=== PATIENT | male | born 1985 | race Caucasian/White ===

== ENCOUNTER 2017-05-17 20:03 | Inpatient (IN) | payer OTHER ==
[~2017-05-17] VITALS: Ht 185.4 cm; Wt 72.6 kg
--- NOTE | 2017-05-17 20:35 | NUR ---
Intake Note Assessment done inside the intake office. Px is A&Ox4. Px is ambulatory with steady gait. Pxs speech is clear and audible. Px appears anxious and depressed. Px is disheveled and unshaven. Px is cooperative. VS as follows BP= 125/61, LA= 118, RR=18, T= 97.3, O2sat= 95%. Px is here for a recent relapse in using heroin. Px stated no hx of seizures and denies any allergies to drugs and food. Px has brought medicine for reconciliation. Admission process will be continued in the unit.
[2017-05-17 21:30] VITALS: BP 118/63
--- NOTE | 2017-05-17 21:30 | NUR ---
Admission Note Admitted a 31 y/o male px on 05/17/2017 for medically supervised withdrawals from opiate. Px arrived in the unit at 2051. Body searched done and skin check performed. No contraband found and skin is intact. Rita's height is 6'1" and weighs 160 lbs. in standing scale. Rita is oriented in the unit and his room. Px follows a regular diet at home. Px wishes to be in full code. No SOB noted. Respirations are even and unlabored. Abdomen is soft and not distended. Bowel sounds active in all 4 abdominal quadrants. Last BM was 2 days ago as stated. VS as follows BP= 118/63, MD= 108, RR= 16, T= 97.3, O2sat= 97% in RA. Px reported PMHx of anxiety and depression. Px denies any suicidal ideation and seizure hx. Px was able to provide urine for UDS. Substance Abuse Hx: 1. Heroin- 1 G smoked daily for 1 week, last intake was few hours prior admission of 0.2 G smoked. 2. Cocaine- intermittent use, last intake was 1 week ago 3. Methamphetamine- intermittent use, last intake was 1 week ago Px stated that this will be his 2nd detox/tx. Px denies hospitalization for the past mo. Px's longest sobriety was 3 mos in 2017. Px smokes 1 pack of cigarettes daily. Px refused flu and pneumonia vaccines. Px is in fall precaution. Rita has no complaints at the moment. Bed on lowest position, side rails up 2x and call light within reach.
[2017-05-17] MEDS ORDERED: MIRALAX 17 GM POWD.PACK PO PRN (22:30)
[2017-05-17] MEDS ORDERED: BUPRENORPHINE HCL 2 MG TAB.SUBL SL PRN (22:30)
[2017-05-17] MEDS ORDERED: diphenhydrAMINE 50 MG CAPSULE PO PRN (22:30)
[2017-05-17] MEDS ORDERED: ONDANSETRON ODT 4 MG TAB.RAPDIS SL PRN (22:30)
[2017-05-17] MEDS ORDERED: LOPERAMIDE HCL 2 MG CAPSULE PO PRN ×2 (22:30)
[2017-05-17] MEDS ORDERED: DICYCLOMINE HCL 20 MG TABLET PO PRN (22:30)
[2017-05-17] MEDS ORDERED: MAG HYDROX/AL HYDROX/SIMETH 30 ML LIQUID UDC PO PRN (22:30)
[2017-05-17] MEDS ORDERED: ONDANSETRON 4 MG/2 ML VIAL IM PRN (22:30)
[2017-05-17] MEDS ORDERED: CLONIDINE HCL 0.1 MG TABLET PO PRN (22:30)
[2017-05-17] MEDS ORDERED: ACETAMINOPHEN 325 MG TABLET PO PRN (22:30)
[2017-05-17] MEDS ORDERED: MAGNESIUM HYDROXIDE 30 ML LIQUID UDC PO PRN (22:30)
[2017-05-17 23:22] LABS: BASOPHILS % (AUTO) 0.2 % (0.0-2.0); EOSINOPHILS # (AUTO) 0.2 K/uL (0.0-0.7); EOSINOPHILS % (AUTO) 1.3 % (0.0-7.0); HEMATOCRIT 39.8 % (36.7-47.1); HEMOGLOBIN 13.5 g/dL (12.5-16.3); LYMPHOCYTES # (AUTO) 1.3 K/uL (20.0-40.0); LYMPHOCYTES % (AUTO) 8.1 % (20.5-51.5); MEAN CORPUSCULAR HEMOGLOBIN 30.2 uug (23.8-33.4); MEAN CORPUSCULAR HGB CONC 34 g/dL (32.5-36.3); MEAN CORPUSCULAR VOLUME 89.1 fL (73.0-96.2); MONOCYTES % (AUTO) 6.3 % (0.0-11.0); NEUTROPHILS # (AUTO) 13.9 K/uL (1.8-8.9); NEUTROPHILS % (AUTO) 84.1 % (38.5-71.5); PLATELET COUNT (AUTO) 318 K/uL (152-348); RED BLOOD CELL COUNT(AUTO) 4.46 MIL/uL (4.06-5.63); WHITE BLOOD COUNT (AUTO) 16.5 K/uL (3.6-10.2)
[2017-05-17 23:27] LABS: CARBON DIOXIDE 31 mmol/L (21-32); CHLORIDE 103 mmol/L (98-107); ETHANOL < 3 MG/DL (0-0); POTASSIUM 3.8 mmol/L (3.5-5.1)
[2017-05-17 23:28] LABS: ALANINE AMINOTRANSFERASE 17 U/L (16-63); ALKALINE PHOSPHATASE 66 U/L (50-136); AMYLASE 23 U/L (25-115); ASPARTATE AMINOTRANSFERASE 13 U/L (15-37); BILIRUBIN,TOTAL 0.4 mg/dL (0.2-1.0); CREATININE 0.9 mg/dL (0.6-1.3); GLUCOSE 122 mg/dL (74-106); LIPASE 71 U/L (73-393); TOTAL PROTEIN, SERUM 6.6 g/dL (6.4-8.2); UREA NITROGEN, BLOOD 17 mg/dL (7-18)
[2017-05-17 23:39] LABS: THYROID STIMULATING HORMONE 0.332 mIU/mL (0.358-3.740)
[2017-05-17 23:49] LABS: *AMPHETAMINE, URINE POSITIVE (NEGATIVE); *BARBITURATE, URINE NEGATIVE (NEGATIVE); *CANNABINOID, URINE NEGATIVE (NEGATIVE); *COCCAINE, URINE POSITIVE (NEGATIVE); *OPIATE, URINE POSITIVE (NEGATIVE); *PHENCYCLIDINE SCREEN,URINE NEGATIVE (NEGATIVE)
[2017-05-18] VITALS: BP 112/61
[2017-05-18] MEDS ORDERED: FLUO15CR2 TP (01:28)
[2017-05-18] MEDS ORDERED: SUMA100T16 PO (01:28)
[2017-05-18 04:00] VITALS: BP 110/63
--- NOTE | 2017-05-18 04:00 | NUR ---
COWS deferred COWS deferred at 0000 and 0400 due to the px is asleep, to assess if the px is awake per doctor's order. We'll continue to monitor.
--- NOTE | 2017-05-18 07:39 | NUR ---
End of Shift Note During the shift, px slept most of the time. Px is not withdrawing yet. Last COWS 4. At 0630, px is asleep on bed in right side lying position. Bed on lowest position, side rails up 2x and call light within reach. We'll continue to monitor. Px endorsed to AM shift nurse.
--- NOTE | 2017-05-18 07:40 | NUR ---
Start of Shift Notes: Received patient in his room. Appears disheveled and unkempt. Clothes on the floor and pillows on the floor. Patient laying in bed with eyes closed. Arousable to touch. Breathing even and unlabored. Appears flushed. Patient is a 31 year old male admitted for opiate withdrawal. Taper to be re-assessed today by MD. Educated patient on his current plano of care for the day and his medication regimen. Encouraged oral fluid intake and encouraged group participation to learn new skills to prevent relapse. Will continue to monitor.
[2017-05-18 08:00] VITALS: BP 117/71
[2017-05-18] MEDS: METHOCARBAMOL 750 MG TABLET PO PRN (08:41)
[2017-05-18] MEDS: MULTIVITAMINS,THERAPEUTIC TABLET PO SCH (08:41)
[2017-05-18] MEDS: IBUPROFEN 600 MG TABLET PO PRN (08:41)
--- NOTE | 2017-05-18 08:41 | NUR ---
Clonidine/Robaxin/Motrin: COWS 6, patient presented with chills, hot flashes, mild sweats, tremors, mild anxiety and 6/10 generalized joint aches. Patient verbalized that he is not ready to take Subutex at this time and will let the nurse know when he is ready. Educated patient on the risk and benefits and to immediately call nurse once he is ready. Per patient, he will let nurse know. PRN Clonidine 0.1mg PO, Motrin 600mg PO and Robaxin 750mg PO given as ordered. Will monitor for effectiveness.
[2017-05-18] MEDS ORDERED: TUBERCULIN,PURIF.PROT.DERIV. 5 TU/0.1 ML TEST ID ONE (09:00)
--- NOTE | 2017-05-18 09:41 | NUR ---
Re-assessment: Clonidine/Motrin and Robaxin Patient verbalizes relief from anxiety, sweats, and restlessness. PL 3/10. PRN Clonidine, Motrin and Robaxin were effective.
--- NOTE | 2017-05-18 11:06 | NUR ---
Communication: Labs WBC 16.5H. Notified Dr. Beebe who is in the unit. Patient is afebrile. Denies any complains of dysyuria. No cough. No congestion noted.
[2017-05-18 12:00] VITALS: BP 115/66
--- NOTE | 2017-05-18 12:00 | NUR ---
COWS Deferred: Patient is seen laying in bed. Eyes closed. Breathing even and unlabored. Easily arousable. RR 15. COWS deferred at this time. Addendum: 05/18/17 at 1216 by DINESH LEHMAN LVN Amended: Links added.
--- NOTE | 2017-05-18 13:32 | NUR ---
Subutex 4 mg SL given: COWS 17, patient presented with runny nose, tearing, muscle aches, bone/joint pain, chills, hot flashes, anxiety and moderate pupil dilation. Medicated patient with Subutex 4 mg SL as ordered. Will monitor for effectiveness.
--- NOTE | 2017-05-18 14:02 | NUR ---
Re-assessment: Subutex 4 mg SL COWS 13, patient noted with decreased tremors, decreased anxiety/agitation, achiness and pupil dilation.
[2017-05-18] MEDS ORDERED: SUMATRIPTAN 25 MG PO PRN (14:15)
[2017-05-18 16:00] VITALS: BP 119/52
[2017-05-18] MEDS: FLUOCINONIDE 0.05% TOP SCH (17:00)
--- NOTE | 2017-05-18 17:59 | NUR ---
1700 Fluocinonide refused: Ointment was offered. Patient refused. Stating "I don't need it right now. Maybe tomorrow." Educated patient on the risk and benefits. Patient states "I'm fine right now."
--- NOTE | 2017-05-18 19:17 | NUR ---
End of Shift Notes: Patient initiated his 3-day Subutex taper as ordered. No adverse reactions noted. No significant abnormalities noted. Withdrawal symptoms were closely monitored. Initial COWS 6, patient presented with anxiety, agitation, restlessness, pupil dilation, myalgia, chills, hot flashes. COWS at 1332 was 17, medicated patient with Subutex 4 mg SL as ordered with help after 30 minutes. Last COWS 10. Per patient, Subutex has been effective in reducing his withdrawal symptoms. Medicated patient with Clonidine, Robaxin and Motrin at 0841 with help after 1 hour. Patient was unable to participate in group and activities due to his withdrawal symptoms. Encouraged oral fluid intake and encouraged group participation to learn new skills to prevent relapse. All needs met and attended. Will continue to monitor.
[2017-05-18 20:00] VITALS: BP 102/69
--- NOTE | 2017-05-18 20:00 | NUR ---
Start of Shift Note Received a 31 y/o male px, admitted on 05/17/2017 for medically supervised withdrawal from opiate. Px is awake on bed on right side lying position reading. Px is disheveled with unshaven face. Unfinished dinner plate and some snack noted on bed side table. Px stated "My anxiety is 5/10". Last reported COWS was 10 by AM shift nurse. Bed on lowest position, side rails up 2x and call light within reach. We'll continue to monitor.
[2017-05-18] MEDS ORDERED: BUPRENORPHINE HCL 2 MG TAB.SUBL SL SCH (21:00)
[2017-05-19] VITALS: BP 109/66
[2017-05-19 04:00] VITALS: BP 101/60
--- NOTE | 2017-05-19 07:17 | NUR ---
End of Shift Note During the shift, px slept most of the time. Px's oral intake is 1 L, voided 2x, BM 1x. Px slept for 11 hours. At 0630, px is asleep on bed. Last COWS 7. Bed on lowest position, side rails up 2x and call light within reach. We'll continue to monitor. Px endorsed to AM shift nurse.
[2017-05-19 07:43] LABS: BASOPHILS # (AUTO) 0.1 K/uL (0.0-8.0); BASOPHILS % (AUTO) 0.3 % (0.0-2.0); EOSINOPHILS # (AUTO) 0.3 K/uL (0.0-0.7); EOSINOPHILS % (AUTO) 1.9 % (0.0-7.0); HEMATOCRIT 40.9 % (36.7-47.1); HEMOGLOBIN 13.9 g/dL (12.5-16.3); LYMPHOCYTES % (AUTO) 13.5 % (20.5-51.5); MEAN CORPUSCULAR HGB CONC 34 g/dL (32.5-36.3); MEAN CORPUSCULAR VOLUME 88.2 fL (73.0-96.2); MONOCYTES # (AUTO) 0.9 K/uL (2.0-10.0); MONOCYTES % (AUTO) 6.1 % (0.0-11.0); NEUTROPHILS # (AUTO) 11.8 K/uL (1.8-8.9); NEUTROPHILS % (AUTO) 78.2 % (38.5-71.5); PLATELET COUNT (AUTO) 327 K/uL (152-348); RED BLOOD CELL COUNT(AUTO) 4.64 MIL/uL (4.06-5.63); WHITE BLOOD COUNT (AUTO) 15.1 K/uL (3.6-10.2)
[2017-05-19 08:00] VITALS: BP 113/72
--- NOTE | 2017-05-19 08:02 | NUR ---
Start of shift note- Pt in bed A&O x4. Pt admitted for heroin, cocaine, and meth dependency. Pt on3 day subutex taper. Tolerating well. Pt had uneventful night. Pt slept 11 hours. Last COWS 7. NKA, FULL CODE. Safety measures in place. will continue to monitor.
[2017-05-19] MEDS: MULTIVITAMINS,THERAPEUTIC TABLET PO SCH (08:46)
[2017-05-19] MEDS: CITALOPRAM 20 MG TABLET PO SCH (08:46)
[2017-05-19] MEDS: IBUPROFEN 600 MG TABLET PO PRN (08:47)
[2017-05-19] MEDS: BUPRENORPHINE HCL 2 MG TAB.SUBL SL SCH ×3 (08:47→21:00)
[2017-05-19] MEDS: METHOCARBAMOL 750 MG TABLET PO PRN (08:47)
--- NOTE | 2017-05-19 08:49 | NUR ---
PRN Ibuprofen 600 mg for back pain #5/10, PRN Robaxin 750 mg for myalgias.
[2017-05-19] MEDS: FLUOCINONIDE 0.05% TOP SCH ×2 (08:52→17:00)
--- NOTE | 2017-05-19 09:50 | NUR ---
Reassess- Robaxin and ibuprofen, effective. Pt states pain decreased to #2/10
[2017-05-19 12:00] VITALS: BP 116/64
[2017-05-19 16:00] VITALS: BP 119/72
[2017-05-19 16:09] LABS: HEPATITIS B SURFACE AG Negative (Negative)
--- NOTE | 2017-05-19 17:21 | NUR ---
Client was prompted to attend daily group therapy sessions. Client related that he would attend the next group today.
--- NOTE | 2017-05-19 18:31 | NUR ---
End of shift note- Pt admitted for heroin, cocaine, and meth dependency. Pt on 3 day subutex taper. Tolerating well. Pt isolative, did not attend group therapy today. Remains disheveled and did not shower. Depressed mood and flat affect. PRN medications administered per MD orders. At 1600 last COWS 8. NKA, FULL CODE. Pt had adequate PO liquid intake 1500 ml, voids X 1, no BM. Safety measures in place. Will endorse to next shift.
--- NOTE | 2017-05-19 19:30 | NUR ---
START OF SHIFT NOTE : Pt. is a 31 year old male admitted on 05/17/2017 for medically supervised withdrawals from opiate. Pt. placed on 3 day Subutex taper on 05/18/2017. PRN Robaxin and Motrin given during day shift. Upon assessment pt. is resting in the room, watching TV. He is alert, oriented x4, anxious, sad facial expression. He complains of insomnia, increased level of anxiety. Last COWS=6 at 19:30. Educated patient regarding the importance of compliance to treatment and medication regime, patient verbalized understanding. Encouraged patient to participate in group therapies and verbalize feelings. Instructed patient to maintain adequate fluid and nutritional intake. All safety measures in place, side rails x2 in lower position. Will cont. to monitor patient closely.
[2017-05-19 20:00] VITALS: BP 123/71
--- NOTE | 2017-05-20 06:35 | NUR ---
END OF SHIFT NOTE : Pt. is a 31 year old male admitted on 05/17/2017 for medically supervised withdrawals from opiate. Pt. placed on 3 day Subutex taper on 05/18/2017. Pt. is compliant with a TX plan, no PRNs given during school psychology specialist . Pt. refused evening dose of Subutex. COWS taken when pt. was awake, last COWS=6 at 04:00. Intake=1,047 , voided x2, slept=6 hours. Safety measures in place : bed on lowest position with side rails x2 up for safety, all light within reach. Will continue to monitor closely and offer help.
--- NOTE | 2017-05-20 07:42 | NUR ---
Start of shift note- Pt admitted for heroin, cocaine, and meth dependency. Pt on 3 day subutex taper. Tolerating well. Pt slept 6 hours last night. Pt had uneventful night. Pt awake, A&O x4. Pt denies c/o discomfort, resp even and unlabored. Remains disheveled. Last COWS 6. NKA, FULL CODE.. Safety measures in place. Will continue to monitor.
[2017-05-20 07:54] LABS: BASOPHILS % (AUTO) 0.2 % (0.0-2.0); EOSINOPHILS # (AUTO) 0.5 K/uL (0.0-0.7); EOSINOPHILS % (AUTO) 4.3 % (0.0-7.0); HEMOGLOBIN 13.3 g/dL (12.5-16.3); LYMPHOCYTES # (AUTO) 2.6 K/uL (20.0-40.0); LYMPHOCYTES % (AUTO) 21.9 % (20.5-51.5); MEAN CORPUSCULAR HEMOGLOBIN 30.3 uug (23.8-33.4); MEAN CORPUSCULAR HGB CONC 34 g/dL (32.5-36.3); MEAN CORPUSCULAR VOLUME 88.7 fL (73.0-96.2); MONOCYTES # (AUTO) 0.9 K/uL (2.0-10.0); MONOCYTES % (AUTO) 7.4 % (0.0-11.0); NEUTROPHILS % (AUTO) 66.2 % (38.5-71.5); PLATELET COUNT (AUTO) 350 K/uL (152-348)
[2017-05-20 08:00] VITALS: BP 109/68
[2017-05-20] MEDS: CITALOPRAM 20 MG TABLET PO SCH (08:54)
[2017-05-20] MEDS: MULTIVITAMINS,THERAPEUTIC TABLET PO SCH (08:54)
[2017-05-20] MEDS: FLUOCINONIDE 0.05% TOP SCH ×2 (08:54→16:22)
[2017-05-20] MEDS ORDERED: BUPRENORPHINE HCL 2 MG TAB.SUBL SL SCH (09:00)
[2017-05-20 12:00] VITALS: BP 124/79
[2017-05-20] MEDS ORDERED: CLON0.1T14 PO (14:17)
[2017-05-20] MEDS ORDERED: METH-406 PO (14:17)
[2017-05-20] MEDS ORDERED: CITA20TA19 PO (14:17)
[2017-05-20] MEDS ORDERED: IBUP-1955 PO (14:17)
[2017-05-20 16:00] VITALS: BP 123/71
[2017-05-20] MEDS: METHOCARBAMOL 750 MG TABLET PO PRN ×2 (16:20→21:31)
[2017-05-20] MEDS: IBUPROFEN 600 MG TABLET PO PRN ×2 (16:20→21:31)
--- NOTE | 2017-05-20 16:21 | NUR ---
PRN Ibuprofen 600 mg PO for back pain #6/10. PRN Robaxin 750 mg PO for myalgias.
--- NOTE | 2017-05-20 17:16 | NUR ---
Reassess Ibuprofen and Robaxin. Pt reports pain now #3-4/10 and myalgias are improved.
--- NOTE | 2017-05-20 18:39 | NUR ---
End of shift note- Pt admitted for heroin, cocaine, and meth dependency. Pt on 3 day subutex taper, completed. Pt refused Subutex medication today. Pt isolative and withdrawn. Remains disheveled and did not shower. PRN Robaxin and Ibuprofen, was effective. Plans for Pt to be discharged home tomorrow. At 1600 last COWS 4. NKA, FULL CODE. PO fluid intake 3257, voids 2, BM X 1. Safety measures in place. Will endorse to PM shift.
--- NOTE | 2017-05-20 19:30 | NUR ---
START OF SHIFT NOTE : Pt. is a 31 year old male admitted on 05/17/2017 for medically supervised withdrawals from opiate. PRN Robaxin and Motrin given during day shift. Upon assessment pt. is socializing with other clients in the activity room, watching TV. He is alert, oriented x4, anxious, cooperative. He complains of insomnia, increased level of anxiety. Last COWS=4 at 16:00. He will be D/C tomorrow in A.M. Instructed patient to maintain adequate fluid and nutritional intake. All safety measures in place, side rails x2 in lower position. Will cont. to monitor patient closely.
[2017-05-20 20:00] VITALS: BP 110/70
--- NOTE | 2017-05-20 21:00 | NUR ---
PRN MOTRIN, ROBAXIN, BENADRYL Patient complains of generalized body ache 5/10, muscle spasm, insomnia. PRN MOTRIN, ROBAXIN, BENADRYL given as ordered. Will monitor for effectiveness. All safety measures in place, side rails x2 in lower position. Will cont. to monitor patient closely.
--- NOTE | 2017-05-20 22:00 | NUR ---
RE-ASSESSMENT BARBARA HERNANDEZ BENADRYL Pt. is sleeping, RR=16, unlabored and even . Safety measures in place : bed on lowest position with side rails x2 up for safety, call light within reach. Will continue to monitor closely and offer help.
--- NOTE | 2017-05-21 06:49 | NUR ---
END OF SHIFT NOTE : Pt. is a 31 year old male admitted on 05/17/2017 for medically supervised withdrawals from opiate. Pt. placed on 3 day Subutex taper on 05/18/2017. Pt. is compliant with a TX plan, PRN MOTRIN, ROBAXIN, BENADRYL given during shield cleaner . COWS taken when pt. was awake, last COWS=4 at 04:00. Pt. will be D/C in A.M. today. Intake=1,096 , voided x2, slept=7 hours. Safety measures in place : bed on lowest position with side rails x2 up for safety, all light within reach. Will continue to monitor closely and offer help.
--- NOTE | 2017-05-21 07:09 | NUR ---
BEGINNING OF SHIFT Patient endorsement report received from pre coder nurse, all pertinent information discussed. Patient is a 31 year old male with admitting Dx: Opiate withdrawal, and substance us e of: cocaine and methamphetamine. Patient continues under very close observation, patient completed 3 day subutex taper as ordered and is scheduled to be discharged this morning, will educate patient regarding all discharge instructions. Per pre coder patient with last cow score of: 4. received PRN: Motrin, Robaxin, and Benadryl. per pre coder. slept for 7 hours. Fall and seizure precautions observed at all times. Patient received awake, alert and oriented x4, educated regarding plan of care for the day, and medication regimen with good verbal understanding. will continue to monitor closely. safety measures in place.
[2017-05-21 07:25] LABS: BASOPHILS % (AUTO) 0.2 % (0.0-2.0); EOSINOPHILS # (AUTO) 0.3 K/uL (0.0-0.7); EOSINOPHILS % (AUTO) 1.5 % (0.0-7.0); HEMATOCRIT 40.1 % (36.7-47.1); HEMOGLOBIN 13.5 g/dL (12.5-16.3); LYMPHOCYTES % (AUTO) 8.7 % (20.5-51.5); MEAN CORPUSCULAR HGB CONC 34 g/dL (32.5-36.3); MEAN CORPUSCULAR VOLUME 88.8 fL (73.0-96.2); MONOCYTES # (AUTO) 1.1 K/uL (2.0-10.0); NEUTROPHILS # (AUTO) 19.5 K/uL (1.8-8.9); NEUTROPHILS % (AUTO) 84.6 % (38.5-71.5); PLATELET COUNT (AUTO) 375 K/uL (152-348); RED BLOOD CELL COUNT(AUTO) 4.52 MIL/uL (4.06-5.63); WHITE BLOOD COUNT (AUTO) 23.1 K/uL (3.6-10.2)
[2017-05-21 08:09] VITALS: BP 116/66
--- NOTE | 2017-05-21 08:30 | NUR ---
MD COMMUNICATION WBC 23.1H. Notified Dr. Beebe, PER md hold discharge until patient is seen by doctor. Patient is afebrile. Denies any complains of dysyuria. No cough. No congestion noted.
[2017-05-21] MEDS: MULTIVITAMINS,THERAPEUTIC TABLET PO SCH (08:48)
[2017-05-21] MEDS: FLUOCINONIDE 0.05% TOP SCH (08:48)
[2017-05-21] MEDS: CITALOPRAM 20 MG TABLET PO SCH (08:48)
--- NOTE | 2017-05-21 10:25 | NUR ---
MD COMMUNICATION Patient was seen and examined by Dr. Beebe patient cleared to be discharged.
[2017-05-21 10:31] LABS: NEUTROPHILS % (MANUAL) 85 % (42-75)
[2017-05-21 10:32] LABS: BAND % (MANUAL) 0 % (0-10); BASOPHILS % (MANUAL) 0 % (0-2); EOSINOPHILS % (MANUAL) 0 % (0-8); LYMPHOCYTES % (MANUAL) 10 % (20-40); MONOCYTES % (MANUAL) 5 % (2-10)
--- NOTE | 2017-05-21 10:32 | NUR ---
BEGINNING OF SHIFT Patient discharged at 1032, prior to discharge patient was provided with teaching and education regarding all discharge instructions. Patients vital signs WNL. Patient with last cow score of: 3. patients noted self motivated towards sobriety. safety measures in place. call light kept with in reach. Prior to discharge patient was administered. Patient off the unit at 1032.
== END 2017-05-21 11:06 | disposition home or self-care (01) | DRG 895 ==
LOC: SRC 20:03
PROVIDERS: ADMIT Internal Medicine; ATTEND Internal Medicine
PROC: HZ2ZZZZ Detoxification Services for Substance Abuse Treatment (ICD-10-PCS; principal; 2017-05-17)
PROC: HZ31ZZZ Individual Counseling for Substance Abuse Treatment, Behavioral (ICD-10-PCS; 2017-05-19)
PROC: HZ41ZZZ Group Counseling for Substance Abuse Treatment, Behavioral (ICD-10-PCS; 2017-05-20)
DX: F11.23 Opioid dependence with withdrawal (principal); D72.823 Leukemoid reaction; Z81.4 Family history of other substance abuse and dependence; G47.00 Insomnia, unspecified; G43.909 Migraine, unspecified, not intractable, without status migrainosus; F15.90 Other stimulant use, unspecified, uncomplicated; F14.90 Cocaine use, unspecified, uncomplicated; F17.210 Nicotine dependence, cigarettes, uncomplicated
CPT/HCPCS: 36415; 70030-TC; 80307; 80324; 80353; 80361; 83690; 83735; 84443; 85025; 86592; 86705; 86803; 87340; 87806; G0480; Q0163